=== PATIENT | female | born 1955 | race Hispanic/Latino ===

== ENCOUNTER 2024-10-11 11:43 | Inpatient (IN) ==
[2024-10-11 14:13] LABS: Basophils # (Auto) 0.04 K/mcL (0.00-0.30); Basophils % (Auto) 0.3 % (0.0-2.0); Eosinophils # (Auto) 0.04 K/mcL (0.00-0.70); Eosinophils % (Auto) 0.3 % (0.0-7.0); Hematocrit 38.7 % (34.1-44.9); Hemoglobin 12.9 g/dL (11.2-15.7); Lymphocytes # (Auto) 1.18 K/mcL (1.50-4.80); Lymphocytes % (Auto) 9.2 % (15.5-49.0); Mean Corpuscular HGB Conc 33.3 g/dL (31.0-36.0); Monocytes # (Auto) 0.65 K/mcL (0.10-0.90); Monocytes % (Auto) 5.1 % (1.0-12.0); Neutrophils % (Auto) 84.9 % (38.0-78.0); Platelet Count 309 K/mcL (140-440); RBC 4.67 M/mcL (3.59-5.38); WBC 12.8 K/mcL (4.5-11.0)
[2024-10-11] MEDS: ONDANSETRON 4 MG/2 ML VIAL IV ONE (14:13)
[2024-10-11 14:23] LABS: ALT/SGPT 30 U/L (<40); AST/SGOT 29 U/L (<32); Albumin 4.3 gm/dL (3.2-5.2); Albumin/Globulin Ratio 1.6 (1.0-2.3); Alkaline Phosphatase 105 U/L (39-117); Anion Gap 14.0 (8.0-16.0); Bilirubin,Total 0.4 mg/dL (0.1-1.0); Blood Urea Nitrogen 11 mg/dL (8-23); Calcium 9.2 mg/dL (8.6-10.4); Carbon Dioxide 22 mmol/L (22-30); Chloride 94 mmol/L (96-108); Globulin 2.7 gm/dL (2.2-3.7); Glucose 120 mg/dL (70-105); Potassium 3.2 mmol/L (3.3-5.1); Sodium 130 mmol/L (133-145)
[2024-10-11 14:37] LABS: INR 1.0 (0.9-1.1); Prothrombin Time 13.3 sec (11.9-14.5)
[2024-10-11] MEDS: 0.9 % SODIUM CHLORIDE 1,000 ML IV SCH (15:35)
[2024-10-11] MEDS: POTASSIUM CHLORIDE 20 MEQ TABLET PO ONE (15:41)
[2024-10-11] MEDS: ONDANSETRON 4 MG/2 ML VIAL IV PRN (16:59)
[2024-10-11] MEDS: 0.9 % SODIUM CHLORIDE 10 ML SYRINGE IV SCH (21:19)
[2024-10-11] MEDS: LOSARTAN 50 MG TABLET PO SCH (21:21)
[2024-10-11] MEDS: METHOCARBAMOL 1,000 MG/10 ML VIAL IV PRN (21:33)
[2024-10-11] MEDS: ACETAMINOPHEN 325 MG TABLET PO PRN (21:34)
[2024-10-12] MEDS: DEXTROSE 5%-1/2NS 1,000 ML IV SCH (00:44)
[2024-10-12 06:50] LABS: Basophils # (Auto) 0.02 K/mcL (0.00-0.30); Basophils % (Auto) 0.2 % (0.0-2.0); Eosinophils # (Auto) 0.09 K/mcL (0.00-0.70); Eosinophils % (Auto) 1.0 % (0.0-7.0); Hematocrit 39.5 % (34.1-44.9); Hemoglobin 13.2 g/dL (11.2-15.7); Lymphocytes # (Auto) 1.16 K/mcL (1.50-4.80); Lymphocytes % (Auto) 13.0 % (15.5-49.0); Mean Corpuscular HGB Conc 33.4 g/dL (31.0-36.0); Monocytes # (Auto) 0.65 K/mcL (0.10-0.90); Monocytes % (Auto) 7.3 % (1.0-12.0); Neutrophils % (Auto) 78.3 % (38.0-78.0); Platelet Count 266 K/mcL (140-440); RBC 4.82 M/mcL (3.59-5.38); WBC 8.9 K/mcL (4.5-11.0)
[2024-10-12 07:31] LABS: ALT/SGPT 24 U/L (<40); AST/SGOT 21 U/L (<32); Albumin 4.1 gm/dL (3.2-5.2); Albumin/Globulin Ratio 1.5 (1.0-2.3); Alkaline Phosphatase 97 U/L (39-117); Anion Gap 13.0 (8.0-16.0); Bilirubin,Direct 0.3 mg/dL (<0.3); Bilirubin,Total 0.8 mg/dL (0.1-1.0); Blood Urea Nitrogen 6 mg/dL (8-23); Calcium 9.1 mg/dL (8.6-10.4); Carbon Dioxide 22 mmol/L (22-30); Chloride 98 mmol/L (96-108); Globulin 2.7 gm/dL (2.2-3.7); Glucose 120 mg/dL (70-105); Phosphorous 2.4 mg/dL (2.5-4.5); Potassium 3.5 mmol/L (3.3-5.1); Sodium 133 mmol/L (133-145); Triglycerides 70 mg/dL (<150); Uric Acid 2.0 mg/dL (2.5-8.0)
[2024-10-12] MEDS: HYDROCHLOROTHIAZIDE 25 MG TABLET PO SCH (08:53)
[2024-10-12] MEDS: SIMVASTATIN 20 MG TABLET PO SCH (08:53)
[2024-10-12] MEDS ORDERED: PRAVASTATIN 20 MG TABLET PO SCH (09:00)
[2024-10-12] MEDS ORDERED: IPRATROPIUM/ALBUTEROL 3 ML AMPUL.NEB NEB PRN ×2 (13:00→15:59)
[2024-10-12] MEDS ORDERED: SCOPOLAMINE 1 PATCH PATCH TOPICAL PRN (13:00)
[2024-10-12] MEDS ORDERED: ONDANSETRON 4 MG/2 ML VIAL ONE (14:00)
[2024-10-12] MEDS ORDERED: GLYCOPYRROLATE 0.2 MG/ML VIAL IV ONE (14:00)
[2024-10-12] MEDS ORDERED: LIDOCAINE 2% PF 5 ML VIAL ONE (14:00)
[2024-10-12] MEDS ORDERED: DEXAMETHASONE 10 MG/ML VIAL ONE (14:00)
[2024-10-12] MEDS ORDERED: MAGNESIUM SULFATE 2 GM/50 ML BAG IV ONE ×2 (14:00)
[2024-10-12] MEDS ORDERED: PROPOFOL 200 MG/20 ML VIAL IV ONE (14:00)
[2024-10-12] MEDS ORDERED: TRANEXAMIC ACID 1,000 MG/10 ML VIAL ONE (14:00)
[2024-10-12] MEDS ORDERED: fentaNYL 100 MCG/2 ML VIAL ONE (14:16)
[2024-10-12] MEDS ORDERED: 0.9 % SODIUM CHLORIDE 100 ML IV ONE (14:36)
[2024-10-12] MEDS: ceFAZolin 2 GM in DEXTROSE 5% IN WATER 50 ML IV SCH (14:58)
[2024-10-12] MEDS: VANCOMYCIN 1 GM VIAL TOPICAL SCH (15:45)
[2024-10-12] MEDS ORDERED: LACTATED RINGERS 250 ML IV PRN (15:59)
[2024-10-12] MEDS ORDERED: diphenhydrAMINE 50 MG/ML VIAL IV PRN (15:59)
[2024-10-12] MEDS ORDERED: NALOXONE HCL 0.4 MG/ML VIAL IV PRN (15:59)
[2024-10-12] MEDS ORDERED: MEPERIDINE 25 MG/ML VIAL IV PRN (15:59)
[2024-10-12] MEDS ORDERED: ONDANSETRON 4 MG/2 ML VIAL IV PRN ×2 (15:59→16:21)
[2024-10-12] MEDS ORDERED: HYDROmorphone 0.5 MG/0.5 ML SYRINGE IV PRN (15:59)
[2024-10-12] MEDS ORDERED: POLYETHYLENE GLYCOL 3350 17 GM PACKET PO PRN (16:21)
[2024-10-12] MEDS ORDERED: BISACODYL 10 MG SUPP.RECT PR PRN (16:21)
[2024-10-12] MEDS ORDERED: FLEETS ADULT 1 DOSE ENEMA PR PRN (16:21)
[2024-10-12] MEDS ORDERED: MAGNESIUM HYDROXIDE 30 ML ORAL.SUSP PO PRN (16:21)
[2024-10-12] MEDS ORDERED: BENZOCAINE/MENTHOL 1 LOZENGE PO PRN (16:21)
[2024-10-12] MEDS: ACETAMINOPHEN 1,000 MG/100 ML BAG IV ONE (16:38)
[2024-10-12] MEDS: TRANEXAMIC ACID 1,000 MG/10 ML VIAL IV SCH (16:39)
[2024-10-12] MEDS: METHOCARBAMOL 1,000 MG/10 ML VIAL IV PRN (16:41)
[2024-10-12] MEDS: KETOROLAC 15 MG/ML VIAL IV PRN (16:42)
[2024-10-12] MEDS: fentaNYL 100 MCG/2 ML VIAL IV PRN (17:16)
[2024-10-12] MEDS: LACTATED RINGERS 1,000 ML IV SCH (17:41)
[2024-10-12] MEDS ORDERED: NON FORMULARY MEDICATION 1 DOSE MISCELL (Irbesartan 300 mg tablet) PO SCH (21:00)
[2024-10-12] MEDS: CYCLOSPORINE 0.05% OU SCH (21:13)
[2024-10-12] MEDS: SENNOSIDES 1 TABLET PO SCH (21:14)
[2024-10-12] MEDS: ASPIRIN 81 MG TAB.CHEW CHEWED SCH (21:19)
[2024-10-12] MEDS: DOCUSATE SODIUM 100 MG CAPSULE PO SCH (21:19)
[2024-10-12] MEDS: ACETAMINOPHEN 500 MG TABLET PO SCH (21:26)
[2024-10-12] MEDS: 0.9 % SODIUM CHLORIDE 10 ML SYRINGE IV SCH (23:13)
[2024-10-13] MEDS: LACTATED RINGERS 1,000 ML IV SCH (01:43)
[2024-10-13] MEDS: METHOCARBAMOL 500 MG TABLET PO PRN (02:16)
[2024-10-13] MEDS ORDERED: HYDROCHLOROTHIAZIDE 25 MG TABLET PO SCH (09:00)
[2024-10-13] MEDS ORDERED: PRAVASTATIN 20 MG TABLET PO SCH (09:00)
[2024-10-13] MEDS ORDERED: PRAVASTATIN 10 MG PO SCH (09:00)
[2024-10-13] MEDS: SIMVASTATIN 10 MG TABLET PO SCH (10:04)
== END 2024-10-13 14:37 | disposition home or self-care (01) | DRG 522 ==
LOC: ED 11:43 → MEDSUR 11:43 → OBSVTOIN 16:06 → MEDSUR 16:13
PROVIDERS: ADMIT Orthopaedic Surgery; ATTEND Orthopaedic Surgery